=== PATIENT | female | born 1950 | race Caucasian/White ===

== ENCOUNTER 2025-03-03 14:52 | Inpatient (IN) | payer MEDICARE, OTHER ==
[~2025-03-03] VITALS: Ht 170.2 cm; Wt 74.8 kg
[2025-03-03] MEDS ORDERED: OLANZAPINE 10 MG VIAL IM ONE (15:31)
[2025-03-03 15:39] LABS: BASOPHILS % (AUTO) 0.9 % (0.0-2.0); EOSINOPHILS # (AUTO) 0.2 K/uL (0.0-0.7); EOSINOPHILS % (AUTO) 3.1 % (0.0-6.0); HEMATOCRIT 36 % (33-45); HEMOGLOBIN 12.3 g/dL (11.5-14.8); LYMPHOCYTES # (AUTO) 2.4 K/uL (0.8-4.8); LYMPHOCYTES % (AUTO) 42.7 % (20.0-44.0); MEAN CORPUSCULAR HEMOGLOBIN 31 PG (26.0-33.0); MEAN CORPUSCULAR HGB CONC 34 g/dl (31.0-36.0); MEAN CORPUSCULAR VOLUME 92 fL (82-100); MONOCYTES # (AUTO) 0.4 K/uL (0.1-1.30); MONOCYTES % (AUTO) 6.9 % (2.0-12.0); NEUTROPHILS # (AUTO) 2.6 K/uL (1.8-8.9); NEUTROPHILS % (AUTO) 46.4 % (43.0-81.0); PLATELET COUNT (AUTO) 166 K/uL (150-450); RED BLOOD CELL COUNT(AUTO) 3.93 MIL/uL (4.0-5.2); RED CELL DISTRIBUTION WIDTH 13.8 % (11.5-15.0); WHITE BLOOD COUNT (AUTO) 5.6 K/uL (4.3-11.0)
[2025-03-03 15:41] LABS: ACETAMINOPHEN < 10 ug/ml (10-30); ALANINE AMINOTRANSFERASE 23 U/L (12-78); ALBUMIN 2.8 g/dL (3.4-5.0); ALCOHOL, BLOOD < 3 mg/dL (0-10); ALKALINE PHOSPHATASE 72 U/L (46-116); ASPARTATE AMINOTRANSFERASE 24 U/L (15-37); BILIRUBIN,DIRECT 0.1 mg/dL (0.0-0.2); BILIRUBIN,TOTAL 0.4 mg/dL (0.2-1.0); CALCIUM, SERUM 9.2 mg/dL (8.5-10.1); CARBON DIOXIDE 24 mmol/L (21-32); CHLORIDE 103 mmol/L (98-107); CREATININE 1.2 mg/dL (0.6-1.3); GLUCOSE 94 mg/dL (74-106); POTASSIUM 4.3 mmol/L (3.5-5.1); SALICYLATE 0.9 mg/dL (2.8-20.0); SODIUM SERUM 133 mmol/L (136-145); TOTAL PROTEIN, SERUM 6.5 g/dL (6.4-8.2); UREA NITROGEN, BLOOD 22 mg/dL (7-18)
[2025-03-03] MEDS: OLANZAPINE 10 MG VIAL IM ONE (15:42)
[2025-03-03] MEDS ORDERED: LORAZEPAM INJ 2 MG/ML VIAL ONE (16:28)
[2025-03-03] MEDS: LORAZEPAM INJ 2 MG/ML VIAL IM ONE (16:32)
[2025-03-03] MEDS ORDERED: POLY17PO4 PO (17:33)
[2025-03-03] MEDS ORDERED: INSU100V39 SQ (17:33)
[2025-03-03] MEDS ORDERED: ATOR80TA PO (17:33)
[2025-03-03] MEDS ORDERED: CHOL100043 PO (17:33)
[2025-03-03] MEDS ORDERED: QUET25TA PO (17:33)
[2025-03-03] MEDS ORDERED: BISA10SU11 RC (17:33)
[2025-03-03] MEDS ORDERED: VITS42.53 TP (17:33)
[2025-03-03] MEDS ORDERED: LORA-258 PO (17:33)
[2025-03-03] MEDS ORDERED: DIVA250T4 PO (17:33)
[2025-03-03] MEDS ORDERED: POTA-88 PO (17:33)
[2025-03-03] MEDS ORDERED: NA P133E RC (17:33)
[2025-03-03] MEDS ORDERED: MAGN400O6 PO (17:33)
[2025-03-03] MEDS ORDERED: ASPI-1420 PO (17:33)
[2025-03-03] MEDS ORDERED: ACET325T53 PO (17:33)
[2025-03-03 17:40] LABS: APPEARANCE,URINE SLIGHTLY CLOUDY (CLEAR); BILIRUBIN,URINE NEGATIVE (NEGATIVE); BLOOD, URINE NEGATIVE Ery/uL (NEGATIVE); COLOR,URINE YELLOW (YELLOW); KETONES,URINE NEGATIVE (NEGATIVE); LEUKOCYTE ESTERASE ,URINE NEGATIVE (NEGATIVE); NITRITE, URINE NEGATIVE (NEGATIVE); PROTEIN,URINE NEGATIVE (NEGATIVE); UGLUCOSE NEGATIVE (NEGATIVE); UROBILINOGEN,URINE 0.2 EU/dL (0.2)
[2025-03-03 17:42] LABS: AMPHETAMINE, URINE NEGATIVE (NEGATIVE); BARBITURATE, URINE NEGATIVE (NEGATIVE); BENZODIAZEPINE, URINE NEGATIVE (NEGATIVE); CANNABINOID, URINE NEGATIVE (NEGATIVE); COCCAINE, URINE NEGATIVE (NEGATIVE); OPIATE, URINE NEGATIVE (NEGATIVE); PHENCYCLIDINE SCREEN,URINE NEGATIVE (NEGATIVE)
[2025-03-03 17:58] LABS: ADD URINE CULTURE YES; BACTERIA,URINE Many /HPF (None Seen); RBC,URINE 0-2 /HPF (0-2)
[2025-03-03 17:59] LABS: SQUAMOUS EPITHELIAL CELL,UR Moderate /HPF (None Seen)
[2025-03-04 02:55] VITALS: BP 126/90; TEMP 97.7; O2SAT 98
[2025-03-04] MEDS ORDERED: ACETAMINOPHEN 325 MG TABLET PO PRN ×2 (03:00→11:00)
[2025-03-04] MEDS ORDERED: LORAZEPAM 0.5 MG TABLET PO PRN (03:00)
[2025-03-04] MEDS ORDERED: MAGNESIUM HYDROXIDE 30 ML UDC PO PRN ×2 (03:00→11:00)
[2025-03-04] MEDS: BLOOD SUGAR DIAGNOSTIC 1 EACH STRIP IN ONE (03:09)
[2025-03-04] MEDS ORDERED: BISACODYL SUPP (10 MG) 10 MG/SUPP.RECT SUPP.RECT RC PRN (11:00)
[2025-03-04] MEDS ORDERED: NA PHOS,M-B/NA PHOS,DI-BA 1 EA ENEMA RC PRN (11:00)
[2025-03-04] MEDS ORDERED: DIVALPROEX SODIUM 250 MG TABLET.DR PO SCH (13:00)
[2025-03-04] MEDS: DIVALPROEX SODIUM 125 MG CAP.SPRINK PO SCH (13:54)
[2025-03-04] MEDS: CHOLECALCIFEROL 1,000 UNIT TABLET (VIT D3) PO SCH (18:02)
[2025-03-04] MEDS: VITAMINS A AND D 56.7 GM TUBE TP SCH (20:42)
[2025-03-04] MEDS: QUETIAPINE FUMARATE 25 MG TABLET PO SCH (21:05)
[2025-03-04] MEDS: ATORVASTATIN 40 MG TABLET PO SCH (21:05)
[2025-03-04 21:30] VITALS: BP 123/65; TEMP 98; O2SAT 98
[2025-03-05 08:00] VITALS: BP 114/68; TEMP 98.8; O2SAT 97
[2025-03-05 08:02] LABS: BILIRUBIN,TOTAL 0.3 mg/dL (0.2-1.0); POTASSIUM 4.5 mmol/L (3.5-5.1); TOTAL PROTEIN, SERUM 6.5 g/dL (6.4-8.2)
[2025-03-05 08:08] LABS: CHOLESTEROL 131 mg/dL (<200); HDL CHOLESTEROL 42 mg/dL (40-60); LDL 69 mg/dL (0-99); TRIGLYCERIDES 152 mg/dL (30-150)
[2025-03-05 08:20] LABS: CALCIUM, SERUM 9.5 mg/dL (8.5-10.1); CREATININE 1.4 mg/dL (0.6-1.3)
[2025-03-05] MEDS: ASPIRIN EC 81 MG TABLET.DR PO SCH (08:32)
[2025-03-05] MEDS: POLYETHYLENE GLYCOL 3350 17 GM POWD.PACK PO SCH (08:33)
[2025-03-05] MEDS: Z GUARD REMEDY 4 OZ OINT TP SCH (08:34)
[2025-03-05 16:00] VITALS: BP 117/60; TEMP 97.9; O2SAT 97
[2025-03-05 20:19] VITALS: BP 115/63; TEMP 97.9; O2SAT 97
[2025-03-05] MEDS: Z GUARD REMEDY 4 OZ OINT TP PRN (20:46)
[2025-03-06 08:00] VITALS: BP 102/53; TEMP 98.4; O2SAT 99
[2025-03-06] MEDS: LORAZEPAM 0.5 MG TABLET PO PRN (08:27)
[2025-03-06 16:00] VITALS: BP 92/70; TEMP 97.9; O2SAT 95
[2025-03-06 21:00] VITALS: BP 125/64; TEMP 97.8; O2SAT 98
[2025-03-07 07:38] LABS: CALCIUM, SERUM 9.4 mg/dL (8.5-10.1); CREATININE 1.2 mg/dL (0.6-1.3); POTASSIUM 3.8 mmol/L (3.5-5.1)
[2025-03-07 08:00] VITALS: BP 136/71; TEMP 97.6; O2SAT 95
[2025-03-07 16:00] VITALS: BP 129/81; TEMP 98.6; O2SAT 96
[2025-03-07 20:48] VITALS: BP 118/53; TEMP 97.5; O2SAT 99
[2025-03-08] MEDS: ZOLPIDEM TARTRATE 5 MG TABLET PO PRN (00:57)
[2025-03-08 08:00] VITALS: BP 136/82; TEMP 97.8; O2SAT 97
[2025-03-08 16:00] VITALS: BP 113/62; TEMP 98.1; O2SAT 98
[2025-03-08 19:54] VITALS: BP 106/57; TEMP 98.6; O2SAT 100
[2025-03-09 08:00] VITALS: BP 102/48; TEMP 97.5; O2SAT 97
[2025-03-09 16:00] VITALS: BP 90/58; TEMP 97.7; O2SAT 97
[2025-03-09 21:08] VITALS: BP 112/87; TEMP 97.7; O2SAT 98
[2025-03-09] MEDS: DIVALPROEX SODIUM 125 MG CAP.SPRINK PO SCH (21:11)
[2025-03-10 16:00] VITALS: BP 115/94; TEMP 98.1; O2SAT 97
[2025-03-10 20:17] VITALS: BP 118/51; TEMP 98.1; O2SAT 97
[2025-03-11 08:00] VITALS: BP 126/61; TEMP 98; O2SAT 97
[2025-03-11] MEDS: OLANZAPINE 10 MG VIAL IM ONE (15:05)
[2025-03-11 16:00] VITALS: BP 136/70; TEMP 97.6; O2SAT 97
[2025-03-11 20:18] VITALS: BP 122/44; TEMP 97.9; O2SAT 99
[2025-03-12 08:00] VITALS: BP 127/64; TEMP 97.9; O2SAT 97
[2025-03-12] MEDS: QUETIAPINE FUMARATE 25 MG TABLET PO SCH (10:07)
[2025-03-12 16:00] VITALS: BP 128/98; TEMP 98; O2SAT 98
[2025-03-12 20:00] VITALS: BP 90/70; TEMP 99; O2SAT 98
[2025-03-12 20:30] VITALS: BP 90/70; TEMP 99; O2SAT 98
[2025-03-13 08:00] VITALS: BP 105/75; TEMP 98.2; O2SAT 97
[2025-03-13] MEDS: MAG HYDROX/AL HYDROX/SIMETH 30 ML UDC PO PRN (14:39)
[2025-03-13 16:00] VITALS: BP 95/81; TEMP 97.5; O2SAT 97
[2025-03-13] MEDS: OLANZAPINE 10 MG VIAL IM ONE (17:24)
[2025-03-13 20:53] VITALS: BP 110/70; TEMP 97.7; O2SAT 97
[2025-03-14 08:00] VITALS: BP 121/62; TEMP 98; O2SAT 98
[2025-03-14 15:55] VITALS: BP 133/70; TEMP 97.9; O2SAT 98
[2025-03-14] MEDS: QUETIAPINE FUMARATE 25 MG TABLET PO SCH (16:32)
[2025-03-14 21:00] VITALS: BP 138/88; TEMP 97.8; O2SAT 97
[2025-03-15 08:00] VITALS: BP 103/63; TEMP 97.8; O2SAT 98
[2025-03-15 15:58] VITALS: BP 132/88; TEMP 97.9; O2SAT 96
[2025-03-15 19:56] VITALS: BP 132/44; TEMP 97.7; O2SAT 100
[2025-03-16 08:00] VITALS: BP 121/52; TEMP 97.7; O2SAT 97
[2025-03-16 16:00] VITALS: BP 115/63; TEMP 98.2; O2SAT 96
[2025-03-16 20:49] VITALS: BP 102/84; TEMP 98.2; O2SAT 98
[2025-03-17 08:00] VITALS: BP 116/57; TEMP 98.6; O2SAT 97
== END 2025-03-17 12:45 | DRG 885 ==
LOC: ER 15:07 → GPS 03-04 01:11
PROVIDERS: ADMIT Psychiatry & Neurology Psychiatry; ATTEND Nurse Practitioner Family
DX: F29 Unspecified psychosis not due to a substance or known physiological condition (principal); N18.9 Chronic kidney disease, unspecified; N17.0 Acute kidney failure with tubular necrosis; E46 Unspecified protein-calorie malnutrition; E87.1 Hypo-osmolality and hyponatremia; E55.9 Vitamin D deficiency, unspecified; E11.22 Type 2 diabetes mellitus with diabetic chronic kidney disease; E78.5 Hyperlipidemia, unspecified; E88.09 Other disorders of plasma-protein metabolism, not elsewhere classified; Z79.899 Other long term (current) drug therapy; Z86.73 Personal history of transient ischemic attack (TIA), and cerebral infarction without residual deficits; Z20.822 Contact with and (suspected) exposure to COVID-19; Z73.6 Limitation of activities due to disability; Z68.25 Body mass index [BMI] 25.0-25.9, adult; F39 Unspecified mood [affective] disorder
CPT/HCPCS: 36415; 80048-TC; 80053-TC; 80061-TC; 80076-TC; 80164-TC; 81001; 82962-TC; 84443-TC; 85025-TC; 87081-TC; 87086-TC; 97110-TC; 97116-TC; 97530-TC; G0480; J2060; J3490